=== PATIENT | female | born 1950 | race Caucasian/White ===

== ENCOUNTER 2021-07-12 07:19 | Day surgery (SDC) | payer MEDICARE ==
[2021-07-10 08:54] VITALS: BMI 25.5
[~2021-07-12 07:19] MED LIST: LACTATED RINGERS 1,000 ML IV SCH
[2021-07-12 07:43] VITALS: TEMP 97.3
[2021-07-12] MEDS ORDERED: PROPOFOL 10 MG/ML 20 ML VIAL IV ONE (08:17)
--- NOTE | 2021-07-12 08:31 | P.PCN ---
Date of Procedure: 07/12/21 Procedure(s) Performed: BRIEF HISTORY: Patient is a 71-year-old pleasant female scheduled for an elective colonoscopy as a part of evaluation of prior history of colon polyps. Last colonoscopy was 5 years ago and biopsies revealed tubular adenoma.. PROCEDURE PERFORMED: Colonoscopy and biopsy. PREOPERATIVE DIAGNOSIS: History of colon polyps. IV sedation per Anesthesia. PROCEDURE: After informed consent was obtained, the patient, was brought into the endoscopy unit. IV sedation was administered by Anesthesia under continuous monitoring. Digital rectal examination was normal. Initially the Olympus CF-160 flexible video colonoscope was then inserted in the rectum, gradually advanced into the cecum without any difficulty. Careful examination was performed as the scope was gradually being withdrawn. Ileocecal valve and the appendiceal orifice were visualized and appeared normal. Prep was excellent. Mucosa of the cecum, ascending colon, transverse colon, descending colon, sigmoid colon, and rectum appeared normal. In the proximal rectum there was a 3-4 mm sessile polyp that was removed by cold biopsy. Retroflexion was performed in the rectum and no lesions were seen. The patient tolerated the procedure well. IMPRESSION: 3 mm sessile proximal rectal polyp status post biopsy Rest of the colon appeared normal RECOMMENDATIONS: Findings of this examination were discussed with the patient as well as a family. She was advised to with the biopsy results have a repeat surveillance colonoscopy in 5 years from now because of prior history of colon polyps..
[2021-07-12 08:53] VITALS: BP 111/70; PULSE 77; RESP 20
== END 2021-07-12 09:04 | disposition home or self-care (01) ==
LOC: ORWHC2ENDO 07:19
PROVIDERS: ATTEND Internal Medicine Gastroenterology
DX: Z12.11 Encounter for screening for malignant neoplasm of colon (principal); D12.8 Benign neoplasm of rectum; Z86.010 Personal history of colon polyps; Z79.899 Other long term (current) drug therapy
CPT/HCPCS: 88305; 45380; J2704